=== PATIENT | female | born 1935 | race Hispanic/Latino ===

== ENCOUNTER 2020-06-16 07:05 | Day surgery (SDC) | payer MEDICARE ==
[~2020-06-16] VITALS: Ht 154.9 cm; Wt 54.0 kg
[2020-06-16] VITALS (16 sets, daily range): BP systolic 135–199; BP diastolic 50–86
[~2020-06-16 07:05] MED LIST: LISI-613 PO; METF-444 PO; PANT40TA54 PO
[2020-06-16] MEDS ORDERED: SODIUM CHLORIDE 0.9% 1000ML 1,000 ML IV ONE (07:17)
[2020-06-16] MEDS ORDERED: IOHEXOL-350 50ML VIAL IV ONE (07:37)
[2020-06-16] MEDS ORDERED: INDOMETHACIN 50 MG SUPP.RECT RC SCH (09:15)
[2020-06-16] MEDS ORDERED: SUCCINYLCHOLINE 200MG/10ML SYR ONE (09:18)
[2020-06-16] MEDS ORDERED: PROPOFOL 10 MG/ML 20ML VIAL IV ONE ×2 (09:18→10:41)
[2020-06-16] MEDS ORDERED: GLYCOPYRROLATE 1 MG/5 ML SYRINGE ONE (09:24)
[2020-06-16] MEDS ORDERED: EPHEDRINE SULFATE 50 MG/ML AMPULE ONE (09:48)
[2020-06-20] MEDS ORDERED: SULF1TAB42 PO (18:41)
[2020-06-20] MEDS ORDERED: ONDA-104 PO (18:41)
[2020-06-20] MEDS ORDERED: DICY20TA11 PO (18:41)
[2020-06-20] MEDS ORDERED: OMEP20CA12 PO (18:41)
[2020-06-20] MEDS ORDERED: PANT40TA54 PO (18:44)
[2020-06-20] MEDS ORDERED: LISI-613 PO (18:44)
[2020-06-20] MEDS ORDERED: METF-444 PO (18:44)
== END 2020-06-16 12:45 | disposition home or self-care (01) ==
LOC: ENDO 07:05 → DAH 07:05 → ENDO 12:45
PROVIDERS: ATTEND Internal Medicine Gastroenterology
DX: K80.50 Calculus of bile duct without cholangitis or cholecystitis without obstruction (principal); I10 Essential (primary) hypertension; E11.9 Type 2 diabetes mellitus without complications; Z90.49 Acquired absence of other specified parts of digestive tract; Z88.6 Allergy status to analgesic agent; K21.9 Gastro-esophageal reflux disease without esophagitis; Z79.84 Long term (current) use of oral hypoglycemic drugs; Z79.899 Other long term (current) drug therapy; Z20.828 Contact with and (suspected) exposure to other viral communicable diseases
CPT/HCPCS: 43264; 43273; 43274; 74328; 82948 ×2; A4215; A4221; A4222; A4223; A4606; A4657 ×2; A4663; C1769 ×2; C1874; C9803; J0330; J2704 ×2; J3490 ×2; J7030 ×2; Q9967; U0003; 74330; G9654

== ENCOUNTER 2020-07-30 12:50 | Emergency (ER) | payer MEDICARE ==
[~2020-07-30 12:50] MED LIST changes: +LEVO50TA4 PO; -LISI-613 PO; +LISI1TAB29 PO; +NIFE90TA65 PO; +PANT40TA PO
[2020-07-30] MEDS ORDERED: SODIUM CHLORIDE 0.9% 1000ML 1,000 ML IV ONE (12:51)
[2020-07-30 14:29] LABS: BASOPHILS % (AUTO) 0.7 % (0.0-5.0); EOSINOPHILS % (AUTO) 0.7 % (0.0-8.0); HEMATOCRIT 37.3 % (36-48); LYMPHOCYTES % (AUTO) 14.8 % (21.0-51.0); MEAN CORPUSCULAR HEMOGLOBIN 27.5 pg (27.0-33.0); MEAN CORPUSCULAR HGB CONC 32.7 g/dL (32.0-36.0); MEAN CORPUSCULAR VOLUME 84.2 fL (79-99); NEUTROPHILS % (AUTO) 79.2 % (40.0-77.0); PLATELET COUNT (AUTO) 286 K/uL (130-400); RED BLOOD CELL COUNT(AUTO) 4.43 MIL/uL (4.00-5.50); RED CELL DISTRIBUTION WIDTH 12.9 % (11.0-15.5); WHITE BLOOD COUNT (AUTO) 8.9 K/uL (4.8-10.8)
[2020-07-30 14:49] LABS: B-TYPE NATRIURETIC PEPTIDE 55 pg/mL (0-100)
[2020-07-30 14:52] LABS: CREATININE 1.5 mg/dL (0.5-1.5); POTASSIUM 4.3 mmol/L (3.5-5.1)
[2020-07-30 14:53] LABS: INR 0.98 (0.85-1.15); PARTIAL THROMBOPLASTIN TIME 26.4 SEC (26.3-35.5); PROTHROMBIN TIME 10.6 SEC (9.6-11.6)
[2020-07-30 14:57] LABS: ALBUMIN 3.7 g/dL (3.5-5.0); BILIRUBIN,TOTAL 0.4 mg/dL (0.2-1.0); TOTAL PROTEIN, SERUM 8.3 g/dL (6.0-8.3)
[2020-07-30 18:12] LABS: APPEARANCE,URINE CLEAR (CLEAR); BILIRUBIN,URINE NEGATIVE (NEGATIVE); COLOR,URINE YELLOW (YELLOW); GLUCOSE, URINE (UA) NEGATIVE (NEGATIVE); KETONES,URINE NEGATIVE (NEGATIVE); LEUKOCYTE ESTERASE ,URINE TRACE (NEGATIVE); NITRATE,URINE NEGATIVE (NEGATIVE); OCCULT BLOOD,URINE NEGATIVE (NEGATIVE); PH,URINE 5.5 (5.0-8.0); PROTEIN,URINE NEGATIVE (NEGATIVE); UROBILINOGEN,URINE 0.2 mg/dL (0.2-1.0)
[2020-07-30 18:14] LABS: BACTERIA,URINE Rare /HPF (None Seen); RBC,URINE None Seen /HPF (0-1); WBC,URINE 0-1 /HPF (0-1)
== END 2020-07-30 19:40 | disposition home or self-care (01) ==
LOC: EDH 12:50
DX: R53.83 Other fatigue (principal); E11.9 Type 2 diabetes mellitus without complications; I10 Essential (primary) hypertension; Z88.6 Allergy status to analgesic agent
CPT/HCPCS: 36415; 71045; 80053; 81001; 82550; 83880; 84484; 85025; 85610; 85730; 93005; 96360; 96361; 99285; J7030

== ENCOUNTER 2020-10-03 11:03 | Emergency (ER) | payer MEDICARE ==
[2020-10-03 11:30] LABS: HEMATOCRIT 35.1 % (36-48); MEAN CORPUSCULAR HEMOGLOBIN 27.5 pg (27.0-33.0); MEAN CORPUSCULAR HGB CONC 32.5 g/dL (32.0-36.0); MEAN CORPUSCULAR VOLUME 84.6 fL (79-99); NEUTROPHILS % (AUTO) 79.4 % (40.0-77.0); PLATELET COUNT (AUTO) 255 K/uL (130-400); RED BLOOD CELL COUNT(AUTO) 4.15 MIL/uL (4.00-5.50); RED CELL DISTRIBUTION WIDTH 14.9 % (11.0-15.5); WHITE BLOOD COUNT (AUTO) 12.9 K/uL (4.8-10.8)
[2020-10-03 11:31] LABS: BASOPHILS % (AUTO) 0.4 % (0.0-5.0); EOSINOPHILS % (AUTO) 0.7 % (0.0-8.0); LYMPHOCYTES % (AUTO) 14.2 % (21.0-51.0); MONOCYTES % (AUTO) 4.7 % (3.0-13.0)
[2020-10-03 12:20] LABS: ALBUMIN 3.8 g/dL (3.5-5.0); BILIRUBIN,TOTAL 0.3 mg/dL (0.2-1.0); CREATININE 1.5 mg/dL (0.5-1.5); POTASSIUM 4.1 mmol/L (3.5-5.1); TOTAL PROTEIN, SERUM 7.7 g/dL (6.0-8.3)
[2020-10-03] MEDS ORDERED: SODIUM CHLORIDE 0.9% 1000ML 1,000 ML IV ONE (13:15)
== END 2020-10-03 15:38 | disposition home or self-care (01) ==
LOC: EDH 11:03
DX: S09.90XA Unspecified injury of head, initial encounter (principal); R55 Syncope and collapse; I10 Essential (primary) hypertension; E11.9 Type 2 diabetes mellitus without complications; E03.9 Hypothyroidism, unspecified; Z95.0 Presence of cardiac pacemaker; Z88.6 Allergy status to analgesic agent; W18.11XA Fall from or off toilet without subsequent striking against object, initial encounter; Y93.89 Activity, other specified; Y92.89 Other specified places as the place of occurrence of the external cause; Y99.8 Other external cause status
CPT/HCPCS: 36415; 70470; 71045; 80053; 84484; 85025; 93005; 96360; 96361; 99285; J7030